=== PATIENT | male | born 1975 | race Native Hawaiian/Other Pacific Islander ===

== ENCOUNTER 2022-08-31 12:31 | Outpatient (CLI) | payer OTHER ==
--- NOTE | 2022-09-01 09:09 | MRI Report ---
PROCEDURE: WRIST WO - LT INDICATIONS: LEFT WRIST PAIN TECHNIQUE: Noncontrast coronal proton density fast spin echo and T2 fast spin echo with fat saturation; coronal 3-D gradient echo, axial T1 spin echo and T2 fast spin echo with fat saturation, sagittal T1 spin ech o through the wrist. COMPARISON: None. FINDINGS: Image quality: Excellent. Bones and cartilage: There is a minimally displaced fracture of the ulnar styloid the surrounding os seous and soft tissue edema. No radial fracture is seen. No distal fracture is seen in the wrist. Mil d degenerative spurring at the base of the first metacarpal. The carpal bones are normally aligned. N o evidence for avascular necrosis. Carpal ligaments: The scapholunate and lunotriquetral ligaments appear intact. On Sagittal images, t he pisohamate ligament appears intact. Triangular fibrocartilage complex: There is high-grade versus full-thickness tearing of the ulnar sty loid and foveal attachments of the triangular fibrocartilage. Small amount of fluid is seen in the di stal radioulnar joint. Tendons and soft tissues: The carpal tunnel structures appear normal, including the median nerve. T he ulnar nerve appears normal within Guyon's canal. Moderate extensor carpi ulnaris tenosynovitis may be reactive to the adjacent fracture. The remaining extensor tendon compartments demonstrate normal morphology, without pathologic tendon sheath fluid. No soft tissue ganglion cysts. IMPRESSION: 1.Minimally displaced fracture of the ulnar styloid with surrounding osseous and soft tissue edema. 2.High-grade and likely full-thickness tearing of the ulnar attachments of the triangular fibrocartil age. Small amount of fluid is seen in the distal radioulnar joint. 3.Moderate extensor carpi ulnaris tenosynovitis, which may be reactive to the adjacent fracture. Reviewed by: John Fletcher MD on 09/01/2022 9:08 AM PST Approved by: John Fletcher MD on 09/01/2022 9:08 AM PST Station ID: [id number]
== END 2022-08-31 12:32 | disposition home or self-care (01) ==
LOC: DI 12:31
PROVIDERS: ATTEND Family Medicine
DX: S52.612A Displaced fracture of left ulna styloid process, initial encounter for closed fracture (principal); M65.9 Synovitis and tenosynovitis, unspecified; S63.502A Unspecified sprain of left wrist, initial encounter

== ENCOUNTER 2022-12-06 13:00 | Outpatient (CLI) | payer OTHER ==
[2022-12-06 13:47] VITALS: BP 116/70
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
== END 2022-12-06 13:01 | disposition home or self-care (01) ==
LOC: SC 13:00
PROVIDERS: ATTEND Nurse Practitioner Family
DX: G47.33 Obstructive sleep apnea (adult) (pediatric) (principal); E66.9 Obesity, unspecified; Z68.30 Body mass index [BMI] 30.0-30.9, adult
CPT/HCPCS: 99203; 99212

== ENCOUNTER 2022-12-25 19:33 | Outpatient (CLI) | payer OTHER | END 2022-12-25 19:34 | disposition home or self-care (01) | LOC: SC 19:33 | PROVIDERS: ATTEND Nurse Practitioner Family | DX: G47.33 Obstructive sleep apnea (adult) (pediatric) (principal) | CPT/HCPCS: 95810 ==

== ENCOUNTER 2023-01-11 11:19 | Outpatient (CLI) | payer OTHER ==
--- NOTE | 2023-01-11 11:58 | Sleep Patient Instructions ---
Sleep Center Visit Summary - Patient Visit Information Reason for Visit: Sleep Study Followup - Patient Instructions Instructions Attached: CPAP, CPAP Dc Additional Instructions: You are being started on CPAP therapy with pressure setting at 4-15 cmH2O. You will need to call the sleep care office to set up your follow up once you have your APAP machine and we will schedule a visit to check compliance and response to therapy at that time. You may call the office with any concerns about pressure feeling too low or too much for adjustment, if needed. You should contact DME for any questions or concerns about mask or equipment. Please follow up in the sleep care office one month after you obtain your new CPAP. - Clinic Information Contact: [facility] [address] [place] [address] [email or web address] T: [phone]
--- NOTE | 2023-01-11 12:00 | SLEEP CARE CONSULTATION ---
Information from patient questionnaire entered by Bhavna Cabrera. I have reviewed and concur with the information entered by Bhavna Cabrera. This document represents the service I personally performed and the decisions made by me, Jyoti Bello ARNP. History of Present Illness Service Date and Time: 01/11/2023 1119 Initial [place] Sleepiness Scale score: 10 (12/06/22) Current [place] Sleepiness Scale score: 18 (01/11/23) Additional HPI information: JOSÉ MANUEL GURROLA returns for follow up and results of the recently performed polysomnography. His results showed mild obstructive sleep apnea with an average AHI of 11.0 and moderate hypoxemia with a manas oxygen saturation of 76%. I explained the pathophysiology behind obstructive sleep apnea. We then spent quite a bit of time discussing different treatment options. For mild obstr uctive sleep apnea, surgery and oral appliance are alternatives to nasal CPAP therapy but in moderate or severe cases, nasal CPAP is the most effective and reliable treatment. Because apnea is primarily in supine position, then positional management therapy could be effective. Methods discussed such as positioning with pillows, using a T-shirt with tennis balls in the back or commercial products that have a pillow format on back to prevent supine sleep. I reviewed the impact of weight changes on sleep apnea and strongly recommended losing weight. After some discussion, the patient opted to go with the nasal CPAP therapy. Nasal autoCPAP set at 4-15 cmH20 will be ordered with rationale explained. A manual titration study will be ordered if unable to find optimal pressure with office ad justments. I explained how CPAP machine works and what to expect when using the machine. Using CPAP every night in order to get used to it was emphasized. Patient advised to put CPAP mask on before getting into bed so as not to fall asleep without CPAP. To assist acclimation to CPAP use, it could also be used for a short time during day while reading or watching TV. The patient was instructed to call the CPAP supplier to discuss any mechanical problem that may occur. If the mask given is uncomfortable or is difficult to keep on through the night even with adjustment, contact the CPAP supplier as many will replace with another mask style if notified before 30 days. If snoring or perceives is not getting enough air or too much air from the machine, notify this office. Patient counseled not drink alcohol less than 4 hours before bedtime as it can increase snoring and apnea. Patient was cautioned about risks of drowsy driving until sleepiness symptoms resolve. Sleep Study - Results Type of Sleep Study: Polysomnography (COMPLETED 12/25/22) Prior sleep studies: Yes Year and Where: [facility] Pol[facility]/Home Sleep Study results: IMPRESSION: The quality of the study is good. The patient had normal sleep efficiency. The sleep architecture was abnormal for sleep fragmentation and reduced amount of time spent in slow wave sleep (N3). Respiratory monitoring showed mild obstructive sleep apnea-hypopnea (AHI = 11.0) associated with frequent arousals, oxyhemoglobin desaturation and moderate hypoxia (manas oxygen saturation of 76%) . The respiratory events occurred almost exclusively during supine sleep (supine AHI = 13.1; non-supine = 2.33). Snore was moderate in intensity. There was no significant periodic leg movement of sleep. Cardiac rhythm was normal sinus rhythm without significant arrhythmia. No abnormal behavior (parasomnia) observed during the night. Allergies and Home Medications Known drug allergies: No Drug allergies reviewed: Yes Home medication list reviewed: Yes (Celecoxib for knee pain) Allergy and home medication list: Allergies No Known Drug Allergies Allergy (Verified 01/10/23 15:23) Review of Systems Review of systems same as previous: Yes (no changes) Physical Exam Vital signs obtained and entered by: BHAVNA Smith MA Blood Pressure: 128/72 (LEFT ARM) Cuff size: regular Heart Rate: 60 O2 Saturation: 97 Height: 5 ft 6 in Weight: 191 lb Body Mass Index: 30.8 BMI Classification: Obese Impression and Plan 1. Obstructive Sleep Apnea-Hypopnea Syndrome, mild, with lowest oxygen saturation of 76%. Obviously this is the cause of the patients symptoms of unrefreshed sleep, and excessive daytime sleepiness. Positive pressure therapy could benefit pre-diabetes, anxiety, depression, mood disorder and attention deficit. As mentioned above, the patient will be started on nasal autoCPAP therapy with pressure set at 4-15 cmH2O. A manual titration study will be completed if unable to find optimal treatment pressure with office adjustments. Compliance guidelines also reviewed. A copy of compliance guidelines will be given for reference at check out. Because the apnea is more severe supine, I instructed to avoid sleeping supine using pillow positioning until able to start CPAP use. 2. Obesity, unspecified. Currently patients BMI is 30.8. Obesity increases the risk of apnea, CPAP pressure requirements and overall health risks especially cardiovascular and diabetes. Thus patient is advised to lose weight. * Nasal auto CPAP therapy, pressure at 4-15 cm H2O. * Attempt to lose weight. * Avoid alcohol consumption near bedtime. * Avoid supine sleep until using CPAP. * The patient is again cautioned about driving until sleepiness completely resolves. * Return one month after CPAP obtained. I will assess response to therapy and compliance at that time. Counseling Topics: Weight loss health impact Visit Type: In Office Time Spent with Patient (minutes): 20 Provider Statement: I spent 100% of the Face to Face Visit with the patient with greater than 50% spent counseling the patient and coordination of care.
[2023-01-11 12:03] VITALS: BP 128/72
== END 2023-01-11 11:20 | disposition home or self-care (01) ==
LOC: SC 11:19
PROVIDERS: ATTEND Nurse Practitioner Family
DX: G47.33 Obstructive sleep apnea (adult) (pediatric) (principal); E66.9 Obesity, unspecified; Z68.30 Body mass index [BMI] 30.0-30.9, adult
CPT/HCPCS: 99212; 99213

== ENCOUNTER 2023-03-07 14:54 | Outpatient (CLI) | payer OTHER ==
--- NOTE | 2023-03-07 15:27 | Sleep Patient Instructions ---
Sleep Center Visit Summary - Patient Visit Information Reason for Visit: First compliance visit with PAP machine - Patient Instructions Additional Instructions: You were here for follow up of CPAP therapy. You will be continued on CPAP therapy with pressure at 9-11 cmH2O. Please let us know if the pressure change is uncomfortable and we can make further adjustments of the pressure. You should follow up with sleep care in 1-2 months. You may contact us sooner for any questions or concerns. - Clinic Information Contact: [facility] [address] [place] [address] [email or web address] T: [phone]
--- NOTE | 2023-03-07 15:30 | SLEEP CARE CONSULTATION ---
Information from patient questionnaire entered by Bhavna Cabrera. I have reviewed and concur with the information entered by Bhavna Cabrera. This document represents the service I personally performed and the decisions made by , Jyoti Bello ARNP. History of Present Illness Service Date and Time: 03/07/2023 1454 Previous diagnosis: Mild, Obstructive Sleep Apnea-Hypopnea Syndrome AHI: 11 (in 2022) Reason for follow up: first compliance Equipment type: CPAP (RESMED 11, s/u 01/2023) Equipment obtained from: Other ([facility]) Mask style: Nasal Mask brand: [id number] [id number] Backup mask available: No (will keep old mask when replaced) Last cushion change: 2 weeks Prior sleep studies: Yes Year and Where: [facility] Type of Sleep Study: Polysomnography (COMPLETED 12/25/22) HPI additional information: JOSÉ MANUEL GURROLA was diagnosed to have mild, AHI 11, obstructive sleep apnea- hypopnea syndrome and returned today for CPAP therapy first compliance follow- up. Sleep Study - Results Type of Sleep Study: Polysomnography (COMPLETED 12/25/22) Prior sleep studies: Yes Year and Where: [facility] CPAP Compliance Data - Data Reviewed with Patient Average duration of nightly device use: 5 HRS 3 MINS Compliance rate %: 83 (02/01/23-03/02/23; 27/30 days used) Current pressure setting (cmH2O): 4-15 (median 6.2, avg 9.6, max 10.4) Average residual AHI: 4.7 Central apnea: 0.1 Obstructive apnea: 4.4 Hypopnea: 0.1 Average large leak: 0.1 L/min Subjective Missed days of use due to: reports: travel (4 days), other (fall asleep without it occasionally) Patient concerns: denies: aerophagia, mask discomfort, air blowing in eyes, mask leak noise, condensation in mask/hose, nasal congestion, dry mouth, nose, throat, epistaxis Observed to snore while using device: No Current pressure setting perceived as: too low On therapy, patient: reports: sleeping better, awakening more refreshed, being more awake and alert during the day, more rested overall. denies: drowsiness while driving Initial [place] Sleepiness Scale score: 10 (12/06/22) Current [place] Sleepiness Scale score: 14 (03/07/23) Allergies and Home Medications Known drug allergies: No Drug allergies reviewed: Yes Home medication list reviewed: Yes (metformin, celecoxib, sumitriptan, amitriptyline (no new meds)) Allergy and home medication list: Allergies No Known Drug Allergies Allergy (Verified 03/06/23 15:29) Review of Systems Review of systems same as previous: Yes (no changes) Physical Exam Vital signs obtained and entered by: BHAVNA Smith MA Blood Pressure: 110/70 (LEFT ARM) Cuff size: regular Heart Rate: 73 O2 Saturation: 96 Height: 5 ft 6 in Weight: 187 lb 12.8 oz Body Mass Index: 30.3 BMI Classification: Obese Impression and Plan 1. Obstructive Sleep Apnea-Hypopnea Syndrome, mild, with good treatment compliance and good apnea control. On CPAP therapy, the patient has better sleep quality and is more rested overall. He states even if he only gets 4 to 5 hours he feels a lot more rested. He also feels that the pressure is a little low at times and that he needs more air in the mask. The patients pressure will be changed to autoCPAP 9-11 cmH20 to reflect pressure being used and for patient comfort. Patient advised to contact me if pressure change is uncomfortable so that it can be adjusted. Goals for apnea control discussed. Patient's apnea severity and rationale for treatment to reduce apnea, improve sleep quality and reduce cardiovascular and cerebrovascular events was reviewed. I also reviewed the benefit of consistent device use of CPAP for pre-diabetes, depression, a nxiety, mood disorder and attention deficit. 2. Obesity, unspecified. Currently patients BMI is 30.3. Obesity increases the risk of apnea, CPAP pressure requirements and overall health risks especially cardiovascular and diabetes. Thus patient is advised to lose weight. * Change auto CPAP pressure to 9-11 cmH2O * Notify me if snoring with mask or feeling that the pressure is too much or too little * Attempt to lose weight * Call this office if any problems using CPAP * Return for follow up in 1-2 months, or sooner if concerns arise Counseling Topics: Spare mask, Weight loss health impact Visit Type: In Office Time Spent with Patient (minutes): 20 Provider Statement: I spent 100% of the Face to Face Visit with the patient with greater than 50% spent counseling the patient and coordination of care.
[2023-03-07 15:37] VITALS: BP 110/70
== END 2023-03-07 14:55 | disposition home or self-care (01) ==
LOC: SC 14:54
PROVIDERS: ATTEND Nurse Practitioner Family
DX: G47.33 Obstructive sleep apnea (adult) (pediatric) (principal); E66.9 Obesity, unspecified; Z68.30 Body mass index [BMI] 30.0-30.9, adult
CPT/HCPCS: 99212; 99213

== ENCOUNTER 2023-04-11 13:01 | Outpatient (CLI) | payer OTHER ==
--- NOTE | 2023-04-11 13:27 | Sleep Patient Instructions ---
Sleep Center Visit Summary - Patient Visit Information Reason for Visit: 1 month followup for PAP therapy - Patient Instructions Additional Instructions: You were here for follow up of CPAP therapy. You will be continued on CPAP therapy with pressure at 9-11 cmH2O. You should follow up with sleep care in 3 months. You may contact us sooner for any questions or concerns. - Clinic Information Contact: [facility] [address] [place] [address] [email or web address] T: [phone]
--- NOTE | 2023-04-11 13:29 | SLEEP CARE CONSULTATION ---
Information from patient questionnaire entered by Bhavna Cabrera. I have reviewed and concur with the information entered by Bhavna Cabrera. This document represents the service I personally performed and the decisions made by , Jyoti Bello ARNP. History of Present Illness Service Date and Time: 04/11/2023 1301 Previous diagnosis: Mild, Obstructive Sleep Apnea-Hypopnea Syndrome AHI: 11 (12/2022) Reason for follow up: one month (F/U) Equipment type: CPAP (RESMED 11, s/u 01/2023) Equipment obtained from: Other ([facility], getting supplies) Mask style: Nasal (3B [place]) Backup mask available: No (will keep old mask when replaced) Last cushion change: 1 week Prior sleep studies: Yes Year and Where: [facility] Type of Sleep Study: Polysomnography (COMPLETED 12/25/22) HPI additional information: JOSÉ MANUEL GURROLA was diagnosed to have mild, AHI 11, obstructive sleep apnea- hypopnea syndrome and returned today for CPAP therapy one month follow-up. Sleep Study - Results Type of Sleep Study: Polysomnography (COMPLETED 12/25/22) Prior sleep studies: Yes Year and Where: [facility] CPAP Compliance Data - Data Reviewed with Patient Average duration of nightly device use: 6 HRS 20 MIN Compliance rate %: 87 (03/11/23-04/09/23; days used) Current pressure setting (cmH2O): 9-11 Average residual AHI: 3.0 Central apnea: 0.1 Obstructive apnea: 2.8 Average large leak: 1.2 L/min Subjective Patient concerns: denies: aerophagia, mask discomfort, air blowing in eyes, mask leak noise, condensation in mask/hose, nasal congestion, dry mouth, nose, throat, epistaxis Observed to snore while using device: No Current pressure setting perceived as: comfortable On therapy, patient: reports: sleeping better, awakening more refreshed, being more awake and alert during the day, more rested overall. denies: drowsiness while driving Initial [place] Sleepiness Scale score: 10 (12/06/22) Current [place] Sleepiness Scale score: 8 (04/11/23) Allergies and Home Medications Known drug allergies: No Drug allergies reviewed: Yes Home medication list reviewed: Yes (see updated list in EMR) Allergy and home medication list: Allergies No Known Drug Allergies Allergy (Verified 04/10/23 09:51) Review of Systems Review of systems same as previous: No (RIGHT FOOT SURGERY) Physical Exam Vital signs obtained and entered by: BHAVNA Smith MA Blood Pressure: 110/60 (LEFT ARM) Cuff size: regular Heart Rate: 72 O2 Saturation: 98 Height: 5 ft 6 in Weight: 194 lb 12.8 oz Body Mass Index: 31.4 BMI Classification: Obese Impression and Plan 1. Obstructive Sleep Apnea-Hypopnea Syndrome, mild, with good treatment compliance and good apnea control. On CPAP therapy, the patient has better sleep quality and is more rested overall. Patient has significant improvement of their sleep apnea and is satisfied with current CPAP therapy. Patient denies problems with oral dryness, nasal congestion, epistaxis, skin irritation or aerophagia. Patient's apnea severity and rationale for treatment to reduce apnea, improve sleep quality and reduce cardiovascular and cerebrovascular events was reviewed. I also reviewed the benefit of consistent device use of CPAP for pre-diabetes, depression/anxiety, mood disorder and attention deficit. 2. Obesity, unspecified. Currently patients BMI is 31.4. Obesity increases the risk of apnea, CPAP pressure requirements and overall health risks especially cardiovascular and diabetes. Thus patient is advised to lose weight. * Continue auto CPAP pressure at 9-11 cmH2O * Notify me if snoring with mask or feeling that the pressure is too much or too little * Attempt to lose weight * Call this office if any problems using CPAP * Return for follow up in 3 months, or sooner if concerns arise Counseling Topics: Spare mask, Weight loss health impact Follow up with Sleep Care in: 3 months Visit Type: In Office Time Spent with Patient (minutes): 15 Provider Statement: I spent 100% of the Face to Face Visit with the patient with greater than 50% spent counseling the patient and coordination of care.
[2023-04-11 13:32] VITALS: BP 110/60; O2SAT 98
== END 2023-04-11 13:02 | disposition home or self-care (01) ==
LOC: SC 13:01
PROVIDERS: ATTEND Nurse Practitioner Family
DX: G47.33 Obstructive sleep apnea (adult) (pediatric) (principal); E66.9 Obesity, unspecified; Z68.31 Body mass index [BMI] 31.0-31.9, adult
CPT/HCPCS: 99212

== ENCOUNTER 2023-07-04 10:55 | Outpatient (CLI) | payer OTHER ==
--- NOTE | 2023-07-04 11:47 | Sleep Patient Instructions ---
Sleep Center Visit Summary - Patient Visit Information Reason for Visit: 3 month followup for PAP therapy - Patient Instructions Additional Instructions: You were here for follow up of CPAP therapy. You will be continued on CPAP therapy with pressure at 9-11 cmH2O. You should follow up with sleep care in 6 months. You may contact us sooner for any questions or concerns. - Clinic Information Contact: [facility] [address] [place] [address] [email or web address] T: [phone]
--- NOTE | 2023-07-04 11:52 | SLEEP CARE CONSULTATION ---
Information from patient questionnaire entered by Bhavna Cabrera. I have reviewed and concur with the information entered by Bhavna Cabrera. This document represents the service I personally performed and the decisions made by me, Franchesca Bello ARNP. History of Present Illness Service Date and Time: 07/04/2023 1055 Previous diagnosis: Mild, Obstructive Sleep Apnea-Hypopnea Syndrome AHI: 11 (12/2022) Reason for follow up: three month (F/U) Equipment type: CPAP (ResMed 11, s/u 01/2023) Equipment obtained from: Other ([facility], getting supplies) Mask style: Nasal (3B [place]) Backup mask available: Yes (old mask) Last cushion change: 1 week ago Prior sleep studies: Yes Year and Where: [facility] Type of Sleep Study: Polysomnography (COMPLETED 12/25/22) HPI additional information: JOSÉ MANUEL GURROLA was diagnosed to have mild, AHI 11, obstructive sleep apnea- hypopnea syndrome and returned today for CPAP therapy three month follow-up. Sleep Study - Results Type of Sleep Study: Polysomnography (COMPLETED 12/25/22) Prior sleep studies: Yes Year and Where: [facility] CPAP Compliance Data - Data Reviewed with Patient Average duration of nightly device use: 5 HRS 26 MINS Compliance rate %: 78 (04/01/23-06/29/23; 77/90 days used) Current pressure setting (cmH2O): 9-11 Average residual AHI: 3.2 Central apnea: 0.1 Obstructive apnea: 2.9 Average large leak: 3.5 L/min Subjective Missed days of use due to: reports: illness (runny nose), other (fall asleep without mask on) Patient concerns: denies: aerophagia, mask discomfort, air blowing in eyes, mask leak noise, condensation in mask/hose, nasal congestion, dry mouth, nose, throat, epistaxis Observed to snore while using device: No Current pressure setting perceived as: comfortable On therapy, patient: reports: sleeping better, awakening more refreshed, being more awake and alert during the day, more rested overall. denies: drowsiness while driving Initial [place] Sleepiness Scale score: 10 (12/06/22) Current [place] Sleepiness Scale score: 8 Allergies and Home Medications Known drug allergies: No Drug allergies reviewed: Yes Home medication list reviewed: Yes (no changes) Allergy and home medication list: Allergies No Known Drug Allergies Allergy (Verified 07/03/23 09:53) Review of Systems Review of systems same as previous: No (GOUT) Physical Exam Vital signs obtained and entered by: FRANCHESCA WILLIAM Blood Pressure: 119/80 Cuff size: regular (left arm) Heart Rate: 73 O2 Saturation: 98 Height: 5 ft 6 in Weight: 195 lb 3.2 oz Body Mass Index: 31.5 BMI Classification: Obese Impression and Plan 1. Obstructive Sleep Apnea-Hypopnea Syndrome, mild, with good treatment compliance and good apnea control. On CPAP therapy, the patient has better sleep quality and is more rested overall. Patient has significant improvement of their sleep apnea and is satisfied with current CPAP therapy. Patient denies problems with oral dryness, nasal congestion, epistaxis, skin irritation or aerophagia. 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 We will follow-up with him when he gets back into [facility] prior to him removing to [place] next year. Patient's apnea severity and rationale for treatment to reduce apnea, improve sleep quality and reduce cardiovascular and cerebrovascular events was reviewed. I also reviewed the benefit of consistent device use of CPAP for pre-diabetes, depression/anxiety, mood disorder and attention deficit. 2. Obesity, unspecified. Currently patients BMI is 31.5. Obesity increases the risk of apnea, CPAP pressure requirements and overall health risks especially cardiovascular and diabetes. Thus patient is advised to continue to try to lose weight. * Continue auto CPAP pressure at 9-11 cmH2O * Supplies for 7 month Deployment request sent to DME * Notify me if snoring with mask or feeling that the pressure is too much or too little * Attempt to lose weight * Call this office if any problems using CPAP * Return for follow up in 6 months, or sooner if concerns arise Counseling Topics: Weight loss health impact Prescriptions: Device supplies (for deployment) Follow up with Sleep Care in: 6 months (or so) Visit Type: In Office Time Spent with Patient (minutes): 20 Provider Statement: I spent 100% of the Face to Face Visit with the patient with greater than 50% spent counseling the patient and coordination of care.
[2023-07-04 11:59] VITALS: BP 119/80; O2SAT 98
== END 2023-07-04 10:56 | disposition home or self-care (01) ==
LOC: SC 10:55
PROVIDERS: ATTEND Nurse Practitioner Family
DX: G47.33 Obstructive sleep apnea (adult) (pediatric) (principal); E66.9 Obesity, unspecified; Z68.31 Body mass index [BMI] 31.0-31.9, adult
CPT/HCPCS: 99212; 99213